=== PATIENT | female | born 1975 | race Caucasian/White ===

== ENCOUNTER 2019-10-18 04:35 | Emergency (ER) | payer OTHER ==
[~2019-10-18] VITALS: Ht 175.3 cm; Wt 120.2 kg
[2019-10-18 05:27] LABS: ABSOLUTE BASOPHILS 0.1 thou/uL (0.0-0.2); ABSOLUTE EOSINOPHILS 0.1 thou/uL (0.0-0.7); ABSOLUTE LYMPHOCYTES 2.7 thou/uL (0.8-5.3); ABSOLUTE MONOCYTES 0.6 thou/uL (0.0-1.2); BASOPHILS 1.9 %; EOSINOPHILS 2.1 %; HEMATOCRIT 38.6 % (37.0-47.0); HEMOGLOBIN 13.4 gm/dL (12.0-15.0); LYMPHOCYTES 41.2 %; MCH 31.4 pg (26.0-34.0); MCHC 34.7 g/dL (28.0-37.0); MCV 90.5 fL (80.0-100.0); MPV 7.4 fl. (7.2-11.1); NUCLEATED RBCS 0 /100WBC; PLATELET COUNT* 256 thou/uL (150-400); POLYS 45.8 %; RBC 4.27 mil/uL (4.20-5.00); RDW-CV 13.7 % (10.5-14.5); WBC 6.6 thou/uL (4.0-11.0)
[2019-10-18 05:40] LABS: CALCIUM 8.2 mg/dL (8.5-10.1); CREATININE 0.9 mg/dL (0.6-1.3); POTASSIUM 3.7 mmol/L (3.5-5.1)
[2019-10-18 05:45] LABS: ALBUMIN 3.5 g/dL (3.4-5.0); TOTAL BILIRUBIN 0.4 mg/dL (<0.1-1.0); TOTAL PROTEIN 7.3 g/dL (6.4-8.2)
[2019-10-18 06:13] LABS: URINE BILIRUBIN NEGATIVE (Negative); URINE BLOOD NEGATIVE (Negative); URINE CLARITY CLEAR; URINE COLOR YELLOW; URINE GLUCOSE-RANDOM NEGATIVE (Negative); URINE KETONES NEGATIVE (Negative); URINE LEUKOCYTES-REFLEX NEGATIVE (Negative); URINE NITRITE-REFLEX NEGATIVE (Negative); URINE PROTEIN NEGATIVE (Negative); URINE SPECIFIC GRAVITY >= 1.030 (1.005-1.030); URINE UROBILINOGEN 0.2 E.U./dl (0.2-1.0)
[2019-10-18] MEDS ORDERED: BACLOFEN 10MG T10 MG PO (06:26)
[2019-10-18 06:32] VITALS: BP 133/67
--- NOTE | 2019-10-18 14:21 | EKG ---
[place] [address] ELECTROCARDIOGRAM REPORT Name: ANUPAM SOARES Room: [facility]#: [id number] Admission: 10/18/19 Attend Phys: Discharge: 10/18/19 Date of : 79 Date of Service: 10/18/19 050 Report #: [id number] THIS REPORT FOR: //name// [facility] ED Test Date: 2019-10-18 Test Time: 05:01:55 Pat Name: ANUPAM SOARES Department: Room: Gender: F [employer]: : 1975 Requested By: Edwina Martniez Order Number: [id number] MD: Daron Rivera Measurements Intervals [place] Rate: 64 P: 16 UT: 144 QRS: 42 QRSD: 104 T: 17 QT: 408 QTc: 421 Interpretive Statements Sinus rhythm No previous ECG available for comparison Electronically Signed On 10-18-2019 14:20:33 CDT by Daron Rivera [email or web address] <ELECTRONICALLY SIGNED> By: Jayde Rivera MD, LOCATED WITHIN [facility] 10/18/19 1420 050 050 Jayde Rivera MD, FACC /EPI
== END 2019-10-18 06:32 | disposition home or self-care (01) ==
LOC: M.ERS 04:35
PROVIDERS: Emergency Medicine
DX: M54.2 Cervicalgia (principal); Z88.0 Allergy status to penicillin